=== PATIENT | female | born 1945 | race Caucasian/White ===

== ENCOUNTER 2017-03-28 20:18 | Emergency (ER) | payer BC, OTHER ==
[~2017-03-28] VITALS: Ht 157.5 cm; Wt 49.0 kg
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
[2017-03-28] MEDS ORDERED: LOSA1TAB9 PO (20:38)
[2017-03-28] MEDS ORDERED: BACITRACIN/POLYMYXIN B OINT 15 GM TUBE TOP ONE (21:15)
[2017-03-28 21:21] VITALS: BP 130/74
[2017-03-28] MEDS ORDERED: BACITRACIN OPHT OINT 3.5 GM TUBE ONE (21:21)
--- NOTE | 2017-03-28 21:22 | NUR ---
Patient discharged to home in stable conditon. Written and verbal after care instructions given. Patient verbalizes understanding of instructions. Ambulated from ER with stable gait. Patient will be driven home by . Alert and oriented x4 at discharge. no further injury or complaint noted.
== END 2017-03-28 21:22 | disposition home or self-care (01) ==
LOC: ER 20:19
DX: S80.211A Abrasion, right knee, initial encounter (principal); S50.811A Abrasion of right forearm, initial encounter; F10.20 Alcohol dependence, uncomplicated; Z88.0 Allergy status to penicillin; V89.2XXA Person injured in unspecified motor-vehicle accident, traffic, initial encounter; W22.10XA Striking against or struck by unspecified automobile airbag, initial encounter; Y93.89 Activity, other specified; Y92.89 Other specified places as the place of occurrence of the external cause; Y99.8 Other external cause status
CPT/HCPCS: A4663; J3590